=== PATIENT | female | born 1960 | race Caucasian/White ===

== ENCOUNTER 2025-04-19 15:08 | Emergency (ER) | payer MEDICARE, OTHER, SELFPAY ==
[2025-04-19 15:48] VITALS: BP 138/65; PULSE 72; RESP 20; TEMP 36.6; O2SAT 95; BMI 38.8
[2025-04-19 16:20] LABS: MANUAL DIFF FLAG NO
[2025-04-19 16:21] LABS: Hematocrit 41.4 % (37.0-47.0); Hemoglobin 14.4 g/dl (12.0-16.0); Imm Gran Abs Auto 0.01 X10*3/uL (0.00-0.03); Imm Gran Pct Auto 0.2 % (0.0-0.4); Lymphocytes Absolute Auto 1.6 X10*3/uL (1.2-4.9); Mean Corpuscular HGB Conc 34.8 g/dl (31.0-35.0); Mean Corpuscular Hemoglobin 29.6 pg (27.0-33.0); Mean Corpuscular Volume 85.2 fL (80.0-98.0); NRBC Abs Auto 0.000 X10*3/uL (0.0-0.012); NRBC Pct Auto 0.0 /100WBC (0.0-0.2); Platelet Count 233 X10*3/uL (160-400); Red Blood Count 4.86 X10*6/uL (4.20-5.50); White Blood Count 5.5 X10*3/uL (4.8-10.8)
[2025-04-19 16:22] LABS: Appearance Urine Clear; Glucose Urine UA Negative (Negative); PH 6.0 (5.0-9.0); Specific Gravity - Urine 1.015 (1.005-1.025); UMIC TRIGGER UACC YES
[2025-04-19 16:26] LABS: UACC Culture Trigger YES
[2025-04-19 16:36] LABS: Alanine Aminotransferase 26 U/L (0-31); Albumin Level 4.4 g/dL (3.5-5.0); Alkaline Phosphatase 76 U/L (39-117); Anion Gap 10 (12-20); Aspartate Amino Transferase 27 U/L (5-31); Blood Urea Nitrogen 17 mg/dL (9-16); Calcium 9.4 mg/dL (8.4-10.2); Carbon Dioxide 28 mmol/L (22-29); Chloride 106 mmol/L (96-108); Creatinine Clr Calc Pharmacy 87.6; Estimated Glomerular Filt Rate > 60; Lipase 28 U/L (8-78); Potassium 4.2 mmol/L (3.3-5.1); Sodium 140 mmol/L (135-145); Total Protein 7.0 g/dL (6.5-8.0)
[2025-04-19 17:58] VITALS: BP 164/70; PULSE 72; RESP 16; TEMP 36.6; O2SAT 96
--- NOTE | 2025-04-19 18:24 | ED.ABDPAIN ---
HPI - Abdominal Pain General Chief Complaint: Abdominal Pain Stated Complaint: R flank pain Time Seen by Provider: 04/19/25 18:21 History of Present Illness ED Provider: Jarrett France MD HPI narrative: 65-year-old female with right flank pain intermittently for a month worse last night. Denies dysuria or hematuria. Related Data Previous Rx's ?Medication ?Instructions ?Recorded sulfamethoxazole 800 1 tab PO Q12H 10 days #20 tabs 04/19/25 mg-trimethoprim 160 mg tablet (Bactrim DS) Allergies Allergy/AdvReac Type Severity Reaction Status Date / Time NSAIDS (Non-Steroidal Allergy Anaphylaxis Verified 04/19/25 15:51 Anti-Inflamma oxycodone AdvReac Nausea Verified 04/19/25 18:34 PMFSH Social History Social History Smoked in Last 30 Days: No Use of substances other than those prescribed or required for medical reasons: No Advance Directives: No Advance Directives Information Provided: No Physical Exam ED Exam Exam: EXAM: Gen: Alert, awake, well appearing, well hydrated. Head: Atraumatic Eyes: Anicteric, Normal conjunctiva. ENT: Moist mucosa, no pallor. ? Neck: Supple. Skin: ?No observable rash or bruising on exposed or examined skin Respiratory: Breathing comfortably, No distress.Clear to auscultation bilaterally, symmetric chest expansion, No wheeze, rales, ronchi. Cardiovascular: Regular rate and rhythm. No murmurs or rub. Well perfused periphery, warm extremities. No edema. ? Abdominal: No focal tenderness. Soft, no objective distension. No palpable masses or obvious organomegaly. ?No guarding, no rebound tenderness or other peritoneal findings. : No flank tenderness. Neuro: Alert. Gross movement of all extremities intact. ? Psych: Calm. Cooperative. MSK: No grossly visible deformity. Vital signs: See flowsheet Vital Signs: Vital Signs - 24 hr 04/19/25 15:48 04/19/25 17:58 Temperature 97.8 F 97.8 F Pulse Rate 72 72 Respiratory Rate 20 16 Blood Pressure 138/65 164/70 H Pulse Oximetry 95 96 Oxygen Delivery Method Room Air Room Air BMI result Body Mass Index 38.8 Procedures Procedure Narrative Procedure Narrative: EMERGENCY ULTRASOUND INTERPRETATION-Limited Retroperitoneal (Renal) [This study was ordered, performed, and interpreted by myself. The study reveals: Impression: NO EVIDENCE OF UROLOGIC OBSTRUCTION] [Indication: FLANK PAIN Bladder: ANECHOIC URINE Right Kidney: NO HYDRONEPHROSIS Performed by: Jarrett France MD Images were stored CPT: 68094] Medical Decision Making Medical Decision Making MDM Narrative: Medical Decision Makin-year-old female with several months of right low posterior axillary line flank pain without injury. No prior urologic symptoms. Denies dysuria. Patient's pain has been fluctuating. She is tender in the right lower flank at the area of maximal pain reported. No abdominal distention or tenderness or masses. Significant white blood cells in the urine given the location of the pain it think it is reasonable to empirically treat for possible pyelonephritis though she is not ill or toxic or septic. Preliminary Favored Differential Diagnosis: Pyelonephritis, kidney stone, musculoskeletal pain among additional considered etiologies Testing Interpreted Independently: See ultrasound report Radiology or Lab testing Results Reviewed: ?See below for details Consults: ?See below for details Independent Historians/External Chart Reviews: ?See below for details Social Determinants of Health Impacting MDM/Planning: ?See below for details Lab Data MDM Lab Attestation statement: I reviewed the patient's lab results. 04/19/25 16:12 04/19/25 16:12 Labs: Lab Results 04/19/25 04/19/25 Range/Units 16:12 16:13 WBC 5.5 (4.8-10.8) X10*3/uL RBC 4.86 (4.20-5.50) X10*6/uL Hgb 14.4 (12.0-16.0) g/dl Hct 41.4 (37.0-47.0) % MCV 85.2 (80.0-98.0) fL MCH 29.6 (27.0-33.0) pg MCHC 34.8 (31.0-35.0) g/dl RDW 12.8 (11.0-16.0) % Plt Count 233 (160-400) X10*3/uL MPV 8.4 L (9.4-12.3) fL Immature Gran % (Auto) 0.2 (0.0-0.4) % Neut % (Auto) 57.9 (45-73) % Lymph % (Auto) 29.5 (20-40) % [place] % (Auto) 9.4 (2-11) % Eos % (Auto) 2.5 (0-4) % Baso % (Auto) 0.5 (0-2) % Lymph # (Auto) 1.6 (1.2-4.9) X10*3/uL [place] # (Auto) 0.5 (0.1-1.2) X10*3/uL Eos # (Auto) 0.1 (0.0-0.4) X10*3/uL Baso # (Auto) 0.0 (0.0-0.2) X10*3/uL Abs Immat Gran (auto) 0.01 (0.00-0.03) X10*3/uL Absolute Neuts (auto) 3.2 (2.0-8.3) x10*3/uL Absolute Nucleated RBC 0.000 (0.0-0.012) X10*3/uL Nucleated RBC % (auto) 0.0 (0.0-0.2) /100WBC Sodium 140 (135-145) mmol/L Potassium 4.2 (3.3-5.1) mmol/L Chloride 106 (96-108) mmol/L Carbon Dioxide 28 (22-29) mmol/L Anion Gap 10 L (12-20) BUN 17 H (9-16) mg/dL Creatinine 0.70 (0.5-1.4) mg/dL Estim Creat Clear Calc 87.6 Estimated GFR > 60 Random Glucose 91 (60-115) mg/dL Calcium 9.4 (8.4-10.2) mg/dL Total Bilirubin 0.3 (0.0-1.0) mg/dL Direct Bilirubin 0.1 (0.0-0.5) mg/dL AST 27 (5-31) U/L ALT 26 (0-31) U/L Alkaline Phosphatase 76 (39-117) U/L Total Protein 7.0 (6.5-8.0) g/dL Albumin 4.4 (3.5-5.0) g/dL Lipase 28 (8-78) U/L Urine Color Yellow Urine Appearance Clear Urine pH 6.0 (5.0-9.0) Ur Specific [place] 1.015 (1.005-1.025) Urine Protein Negative (Neg-Trace) mg/dL Urine Glucose (UA) Negative (Negative) mg/dL Urine Ketones Negative (Negative) mg/dL Urine Blood Negative (Negative) Urine Nitrite Negative (Negative) Ur Leukocyte Esterase Large (3+) H (Negative) Urine RBC 0-2 (0-2) /HPF Urine WBC 21-50 H (0-5) /HPF Ur Squamous Epith Cells 6-10 (0-2) /HPF Urine Bacteria 1+ (None Seen) Hyaline Casts 0-2 (0-2) /LPF Medications Administered Discontinued Medications Generic Name Dose Route Start Last Admin Trade Name Shanna PRN Reason Stop Dose Admin Ibuprofen 800 mg 04/19/25 18:22 04/19/25 18:44 Ibuprofen 800 Mg Tablet PO 04/19/25 18:23 Not Given ONCE ONE Oxycodone HCl 5 mg 04/19/25 18:22 04/19/25 18:45 Oxycodone Hcl Immed Release 5 Mg Tablet PO 04/19/25 18:23 Not Given ONCE ONE Trimethoprim/Sulfamethoxazole 1 tab 04/19/25 18:22 04/19/25 19:39 Sulfamethox/Trimeth 800/160 Tablet PO 04/19/25 18:23 1 tab ONCE ONE Administration Discharge Plan Discharge Clinical Impression: Urinary tract infection, Acute flank pain Patient Disposition: Home, Self-Care Instructions: Abdominal Pain (ED) Additional Instructions: Today in the emergency department you were evaluated for right flank pain which has been intermittent and sometimes worse than other times for several weeks or possibly months. In the emergency department you had a ultrasound of your right kidney and bladder which did not show signs of obstruction. You had a urinalysis that suggested infection with a lot of white blood cell infection fighting cells. You were given a 1st dose of Bactrim. Your labs including blood counts kidney function were reassuring. We decided and discussed together to initiate antibiotic treatment for possible pyelonephritis or upper urinary tract/kidney infection. He will be on this for 10 days. If you see no improvement of your pain after 3-4 days of treatment or particularly if you get worse with worsening pain high fevers vomiting blood in the urine burning with urination or other symptoms return back to the emergency department otherwise call your primary physician for close follow up you may need additional diagnostic testing if this treatment does not help Prescriptions: New sulfamethoxazole-trimethoprim [Bactrim DS] 800-160 mg tablet 1 tab PO Q12H 10 Days Qty: 20 0RF Interventions: ED Discharge Assessment Last Done: 04/19/25 19:40 Discharge Date/Time: 04/19/25 20:00 Print Language: [place]
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
[2025-04-19] MEDS: Sulfamethox/Trimeth 800/160 TABLET 1 TAB PO (19:39)
[2025-04-19 19:40] VITALS: BP 146/67; PULSE 61; RESP 16; TEMP 36.6; O2SAT 98
== END 2025-04-19 20:00 | disposition home or self-care (01) ==
PROVIDERS: Emergency Provider Emergency Medicine; PCP Internal Medicine
DX: N39.0 Urinary tract infection, site not specified (principal); R10.9 Unspecified abdominal pain
CPT/HCPCS: 36415; 76775; 80053; 81001; 82248; 83690; 85025; 87086; 99284